=== PATIENT | male | born 1955 | race African-American/Black ===

== ENCOUNTER 2017-05-29 03:53 | Inpatient (IN) | payer MEDICAID ==
[~2017-05-29] VITALS: Ht 177.8 cm; Wt 84.4 kg
[~2017-05-29 03:53] MED LIST: AMLO5TAB88 PO; CHLO10TA9 PO; FLUC100T42 PO; OMEP20CA10 PO; TRAM50TA3 PO
[2017-05-29] MEDS ORDERED: SODIUM CHLORIDE 0.9% 1,000 ML IV ONE ×2 (04:30→06:20)
[2017-05-29] MEDS ORDERED: ONDANSETRON HCL 4MG/2ML VIAL IV STA ×2 (04:30→06:20)
[2017-05-29] MEDS ORDERED: KETOROLAC 30MG/ML VIAL IV STA (04:30)
[2017-05-29 05:33] LABS: HEMOGLOBIN. 8.9 g/dL (14.0-18.0); MEAN CORPUSCULAR HEMOGLOBIN 26.7 pg (28.0-32.0); MEAN CORPUSCULAR VOLUME 81.3 fL (80.0-94.0); MEAN PLATELET VOLUME 7.5 fl (7.4-10.4); PLATELET 338 x1000/uL (130-400); RED BLOOD CELL COUNT 3.31 mill/uL (4.7-6.1); RED CELL DISTRIBUTION WIDTH 20.6 % (11.6-14.6)
[2017-05-29 05:37] LABS: CARBON DIOXIDE 20 mEq/L (21-32); CHLORIDE 95 mEq/L (98-107); ETHANOL BLOOD < 10 mg/dL; INR 1.3
[2017-05-29] MEDS ORDERED: MORPHINE SULFATE 4 MG/ML CPJ (NOT FOR IM USE) IV STA (06:20)
[2017-05-29 07:13] LABS: PLATELET ESTIMATE NORMAL
[2017-05-29 09:01] LABS: CLARITY URINE CLEAR (CLEAR); COLOR URINE DARK YELLOW (YELLOW); GLUCOSE URINE NEGATIVE (NEGATIVE); KETONES URINE TRACE (NEGATIVE); LEUKOCYTE ESTERASE URINE NEGATIVE (NEGATIVE); NITRITE URINE NEGATIVE (NEGATIVE); OCCULT BLOOD URINE NEGATIVE (NEGATIVE); PH URINE 5.5 (4.5-8.0); PROTEIN URINE TRACE (NEGATIVE)
[2017-05-29 09:05] VITALS: BP 122/80
[2017-05-29 09:19] LABS: *AMPHETAMINES SCREEN URINE NEGATIVE (NEGATIVE); *BARBITURATES SCREEN URINE NEGATIVE (NEGATIVE); *BENZODIAZEPINES SCREEN URINE NEGATIVE (NEGATIVE); *COCAINE SCREEN URINE NEGATIVE (NEGATIVE); CANNABINOID URINE SCREEN PRESUMTIVE POSITIVE (NEGATIVE); METHADONE URINE SCREEN NEGATIVE (NEGATIVE); OPIATES URINE SCREEN PRESUMTIVE POSITIVE (NEGATIVE); PHENCYCLIDINE URINE SCREEN NEGATIVE (NEGATIVE)
[2017-05-29] MEDS ORDERED: DIPHENHYDRAMINE 50MG/ML VIAL IV PRN (09:30)
[2017-05-29] MEDS ORDERED: ACETAMINOPHEN 325MG TABLET PO PRN (09:30)
[2017-05-29] MEDS ORDERED: CLONIDINE 0.1MG TABLET PO PRN (09:30)
[2017-05-29] MEDS ORDERED: IPRATROPIUM/ALBUTEROL 0.5-3(2.5)MG/3ML NEB INH PRN (09:30)
[2017-05-29] MEDS ORDERED: LORAZEPAM 2MG/ML CPJ IV PRN (09:30)
[2017-05-29] MEDS ORDERED: DOCUSATE SODIUM 100MG CAPSULE PO PRN (09:30)
[2017-05-29] MEDS ORDERED: MAGNESIUM/ALUMINUM HYDROXIDE/SIMETHICONE 30ML UDC PO PRN (09:30)
[2017-05-29] MEDS ORDERED: HYDROCODONE/APAP 7.5/325MG 1 TAB TABLET PO PRN (09:30)
[2017-05-29] MEDS ORDERED: GUAIFENESIN 200MG/10ML SUGAR FREE UDC PO PRN (09:30)
[2017-05-29] MEDS: OMEPRAZOLE 20MG CAPSULE EXTENDED RELEASE PO SCH (09:53)
[2017-05-29] MEDS: SODIUM CHLORIDE 0.45% 1,000 ML IV SCH ×2 (09:53→23:31)
[2017-05-29] MEDS: ENOXAPARIN 40MG/0.4ML SYR SUBCUT SCH (09:54)
[2017-05-29] MEDS: HYDROMORPHONE HCL/PF 2MG/ML CPJ IV PRN ×4 (09:55→23:56)
[2017-05-29 12:16] VITALS: BP 117/75
[2017-05-29 16:00] VITALS: BP 110/79
[2017-05-29] MEDS: NA PHOS,M-B/NA PHOS,DI-BA ENEMA 118ML PR PRN (18:06)
[2017-05-29 20:00] VITALS: BP 123/82
[2017-05-29] MEDS: LEVOFLOXACIN 500MG PREMIX 100 ML IV SCH (20:37)
[2017-05-29] MEDS: AMLODIPINE 5MG TABLET PO SCH (20:37)
[2017-05-29] MEDS: ONDANSETRON HCL 4MG/2ML VIAL IV PRN (21:37)
[2017-05-29 23:54] VITALS: BP 122/81
[2017-05-30 04:30] VITALS: BP 120/78
[2017-05-30 06:20] LABS: HEMATOCRIT. 28.8 % (42.0-52.0); HEMOGLOBIN. 9.3 g/dL (14.0-18.0); MEAN CORPUSCULAR HEMOGLOBIN 26.5 pg (28.0-32.0); MEAN CORPUSCULAR VOLUME 82.4 fL (80.0-94.0); PLATELET 405 x1000/uL (130-400); RED CELL DISTRIBUTION WIDTH 19.8 % (11.6-14.6)
[2017-05-30] MEDS: HYDROMORPHONE HCL/PF 2MG/ML CPJ IV PRN ×5 (06:27→22:09)
[2017-05-30] MEDS: ONDANSETRON HCL 4MG/2ML VIAL IV PRN (06:27)
[2017-05-30] MEDS: OMEPRAZOLE 20MG CAPSULE EXTENDED RELEASE PO SCH (06:27)
[2017-05-30 07:41] LABS: CARBON DIOXIDE 19 mEq/L (21-32); CHLORIDE 96 mEq/L (98-107)
[2017-05-30 07:47] LABS: HDL CHOLESTEROL 12 mg/dL (40-59); LDL CHOLESTEROL 63 mg/dL (5-100)
[2017-05-30 08:00] VITALS: BP 122/82
[2017-05-30] MEDS: METRONIDAZOLE 500 MG PREMIX 100 ML IV SCH ×3 (08:26→21:58)
[2017-05-30] MEDS: AMLODIPINE 5MG TABLET PO SCH ×2 (08:27→20:48)
[2017-05-30] MEDS: ENOXAPARIN 40MG/0.4ML SYR SUBCUT SCH (08:28)
[2017-05-30 10:09] LABS: PLATELET ESTIMATE SLIGHTLY INCREASED
[2017-05-30 12:00] VITALS: BP_SYST 106; BP_SYST 116; BP_DIAS 66; BP_DIAS 75
[2017-05-30] MEDS: SODIUM CHLORIDE 0.45% 1,000 ML IV SCH (12:52)
[2017-05-30 16:00] VITALS: BP 113/80
[2017-05-30 20:00] VITALS: BP 120/76
[2017-05-30] MEDS: LEVOFLOXACIN 500MG PREMIX 100 ML IV SCH (20:48)
[2017-05-30 23:54] VITALS: BP 123/68
[2017-05-31 04:48] VITALS: BP 120/76
[2017-05-31] MEDS: SODIUM CHLORIDE 0.45% 1,000 ML IV SCH ×2 (04:50→13:37)
[2017-05-31] MEDS: HYDROMORPHONE HCL/PF 2MG/ML CPJ IV PRN ×5 (04:50→21:20)
[2017-05-31] MEDS: METRONIDAZOLE 500 MG PREMIX 100 ML IV SCH ×3 (06:41→22:37)
[2017-05-31] MEDS: OMEPRAZOLE 20MG CAPSULE EXTENDED RELEASE PO SCH (06:42)
[2017-05-31 07:07] LABS: HEMATOCRIT. 26.8 % (42.0-52.0); HEMOGLOBIN. 8.7 g/dL (14.0-18.0); MEAN CORPUSCULAR HEMOGLOBIN 26.6 pg (28.0-32.0); MEAN CORPUSCULAR VOLUME 81.9 fL (80.0-94.0); MEAN PLATELET VOLUME 7.7 fl (7.4-10.4); PLATELET 466 x1000/uL (130-400); RED BLOOD CELL COUNT 3.27 mill/uL (4.7-6.1); RED CELL DISTRIBUTION WIDTH 19.8 % (11.6-14.6)
[2017-05-31 08:00] VITALS: BP_SYST 104; BP_SYST 106; BP_DIAS 74; BP_DIAS 76
[2017-05-31 08:32] LABS: CARBON DIOXIDE 18 mEq/L (21-32); CHLORIDE 96 mEq/L (98-107)
[2017-05-31] MEDS: AMLODIPINE 5MG TABLET PO SCH ×2 (09:00→21:17)
[2017-05-31] MEDS: ENOXAPARIN 40MG/0.4ML SYR SUBCUT SCH (09:31)
[2017-05-31] MEDS: ONDANSETRON HCL 4MG/2ML VIAL IV PRN (09:31)
[2017-05-31 12:00] VITALS: BP 102/74
[2017-05-31 14:05] LABS: PLATELET ESTIMATE INCREASED
[2017-05-31 16:00] VITALS: BP 116/77
[2017-05-31 20:00] VITALS: BP 124/79
[2017-05-31] MEDS: LEVOFLOXACIN 500MG PREMIX 100 ML IV SCH (21:17)
[2017-06-01] VITALS: BP 118/76
[2017-06-01] MEDS: HYDROMORPHONE HCL/PF 2MG/ML CPJ IV PRN ×7 (01:29→22:22)
[2017-06-01 04:00] VITALS: BP 112/74
[2017-06-01] MEDS: SODIUM CHLORIDE 0.45% 1,000 ML IV SCH ×2 (04:39→20:39)
[2017-06-01] MEDS: METRONIDAZOLE 500 MG PREMIX 100 ML IV SCH ×3 (05:05→22:18)
[2017-06-01 07:14] LABS: HEMATOCRIT. 27.4 % (42.0-52.0); HEMOGLOBIN. 8.9 g/dL (14.0-18.0); MEAN CORPUSCULAR HEMOGLOBIN 26.3 pg (28.0-32.0); MEAN CORPUSCULAR VOLUME 80.7 fL (80.0-94.0); MEAN PLATELET VOLUME 7.4 fl (7.4-10.4); PLATELET 527 x1000/uL (130-400); RED BLOOD CELL COUNT 3.39 mill/uL (4.7-6.1); RED CELL DISTRIBUTION WIDTH 19.9 % (11.6-14.6)
[2017-06-01 07:49] LABS: CARBON DIOXIDE 17 mEq/L (21-32); CHLORIDE 97 mEq/L (98-107)
[2017-06-01 08:00] VITALS: BP 110/78
[2017-06-01] MEDS: AMLODIPINE 5MG TABLET PO SCH ×2 (08:51→20:40)
[2017-06-01] MEDS: FAMOTIDINE 20MG TABLET PO SCH ×2 (08:54→20:39)
[2017-06-01] MEDS: ENOXAPARIN 40MG/0.4ML SYR SUBCUT SCH (08:56)
[2017-06-01] MEDS ORDERED: LEVOFLOXACIN 500MG PREMIX 100 ML IV SCH (09:00)
[2017-06-01] MEDS: NA PHOS,M-B/NA PHOS,DI-BA ENEMA 118ML PR PRN (09:10)
[2017-06-01 10:55] LABS: PLATELET ESTIMATE INCREASED
[2017-06-01 12:00] VITALS: BP 90/50
[2017-06-01 16:00] VITALS: BP 113/76
[2017-06-01 20:00] VITALS: BP 107/76
[2017-06-01] MEDS: LEVOFLOXACIN 500MG PREMIX 100 ML IV SCH (20:38)
[2017-06-02] VITALS: BP 118/75
[2017-06-02] MEDS: HYDROMORPHONE HCL/PF 2MG/ML CPJ IV PRN ×7 (01:37→19:48)
[2017-06-02 04:00] VITALS: BP 120/88
[2017-06-02] MEDS: METRONIDAZOLE 500 MG PREMIX 100 ML IV SCH ×3 (05:00→21:29)
[2017-06-02 07:15] LABS: HEMATOCRIT. 29.1 % (42.0-52.0); HEMOGLOBIN. 9.3 g/dL (14.0-18.0); MEAN CORPUSCULAR HEMOGLOBIN 26.1 pg (28.0-32.0); MEAN CORPUSCULAR VOLUME 82.2 fL (80.0-94.0); MEAN PLATELET VOLUME 7.2 fl (7.4-10.4); PLATELET 536 x1000/uL (130-400); RED BLOOD CELL COUNT 3.54 mill/uL (4.7-6.1); RED CELL DISTRIBUTION WIDTH 20.8 % (11.6-14.6)
[2017-06-02 07:44] VITALS: BP 117/79
[2017-06-02 08:12] LABS: CARBON DIOXIDE 18 mEq/L (21-32); CHLORIDE 98 mEq/L (98-107)
[2017-06-02 08:18] LABS: PLATELET ESTIMATE INCREASED
[2017-06-02] MEDS: AMLODIPINE 5MG TABLET PO SCH ×2 (09:00→21:29)
[2017-06-02] MEDS: ENOXAPARIN 40MG/0.4ML SYR SUBCUT SCH (09:04)
[2017-06-02] MEDS: FAMOTIDINE 20MG TABLET PO SCH ×2 (09:04→21:28)
[2017-06-02 12:07] VITALS: BP 114/79
[2017-06-02] MEDS: LACTULOSE 20G/30ML UDC PO PRN (12:45)
[2017-06-02] MEDS: SODIUM CHLORIDE 0.45% 1,000 ML IV SCH (12:46)
[2017-06-02] MEDS: ONDANSETRON HCL 4MG/2ML VIAL IV PRN (15:02)
[2017-06-02 15:49] VITALS: BP 127/76
[2017-06-02] MEDS: LEVOFLOXACIN 500MG PREMIX 100 ML IV SCH (19:46)
[2017-06-02 20:00] VITALS: BP 120/74
[2017-06-02] MEDS: METOPROLOL TARTRATE 25MG TABLET PO SCH (21:29)
[2017-06-03] VITALS: BP 124/77
[2017-06-03] MEDS: HYDROMORPHONE HCL/PF 2MG/ML CPJ IV PRN ×6 (00:57→23:05)
[2017-06-03 04:00] VITALS: BP 115/74
[2017-06-03] MEDS: METRONIDAZOLE 500 MG PREMIX 100 ML IV SCH ×3 (06:17→22:30)
[2017-06-03 07:19] LABS: CARBON DIOXIDE 15 mEq/L (21-32); CHLORIDE 99 mEq/L (98-107)
[2017-06-03 08:00] VITALS: BP 123/78
[2017-06-03] MEDS ORDERED: SODIUM POLYSTYRENE SULFONATE 15 G/60 ML BOT PO NR (08:00)
[2017-06-03] MEDS ORDERED: VANCOMYCIN 1 G PREMIX 200 ML IV NR (09:00)
[2017-06-03] MEDS ORDERED: LACTOBACILLUS GG CAPSULE PO SCH (09:00)
[2017-06-03] MEDS: ENOXAPARIN 40MG/0.4ML SYR SUBCUT SCH (09:02)
[2017-06-03] MEDS: FAMOTIDINE 20MG TABLET PO SCH ×2 (09:03→21:00)
[2017-06-03] MEDS: AMLODIPINE 5MG TABLET PO SCH ×2 (09:03→21:00)
[2017-06-03] MEDS: METOPROLOL TARTRATE 25MG TABLET PO SCH ×2 (09:03→21:00)
[2017-06-03 09:08] LABS: HEMATOCRIT. 29.8 % (42.0-52.0); HEMOGLOBIN. 9.7 g/dL (14.0-18.0); MEAN CORPUSCULAR HEMOGLOBIN 26.5 pg (28.0-32.0); MEAN CORPUSCULAR VOLUME 81.3 fL (80.0-94.0); PLATELET 546 x1000/uL (130-400); RED BLOOD CELL COUNT 3.66 mill/uL (4.7-6.1); RED CELL DISTRIBUTION WIDTH 20.4 % (11.6-14.6)
[2017-06-03 12:00] VITALS: BP 120/78
[2017-06-03] MEDS: SODIUM CHLORIDE 0.45% 1,000 ML IV SCH (12:04)
[2017-06-03 13:50] LABS: PLATELET ESTIMATE INCREASED
[2017-06-03 16:34] VITALS: BP 118/77
[2017-06-03] MEDS: LACTULOSE 20G/30ML UDC PO PRN (18:19)
[2017-06-03 20:00] VITALS: BP 119/74
[2017-06-03] MEDS: LEVOFLOXACIN 500MG PREMIX 100 ML IV SCH (20:04)
[2017-06-03] MEDS: ONDANSETRON HCL 4MG/2ML VIAL IV PRN (21:16)
[2017-06-04] VITALS (13 sets, daily range): BP systolic 105–138; BP diastolic 74–90
[2017-06-04] MEDS: HYDROMORPHONE HCL/PF 2MG/ML CPJ IV PRN ×4 (03:43→20:13)
[2017-06-04] MEDS: ONDANSETRON HCL 4MG/2ML VIAL IV PRN (03:54)
[2017-06-04] MEDS: METRONIDAZOLE 500 MG PREMIX 100 ML IV SCH ×3 (05:36→22:19)
[2017-06-04] MEDS: SODIUM CHLORIDE 0.45% 1,000 ML IV SCH (08:27)
[2017-06-04] MEDS: FAMOTIDINE 20MG TABLET PO SCH ×2 (08:28→20:13)
[2017-06-04] MEDS: ENOXAPARIN 40MG/0.4ML SYR SUBCUT SCH (08:28)
[2017-06-04] MEDS: AMLODIPINE 5MG TABLET PO SCH ×2 (08:28→20:13)
[2017-06-04] MEDS: METOPROLOL TARTRATE 25MG TABLET PO SCH ×2 (08:28→20:13)
[2017-06-04] MEDS ORDERED: SODIUM CHLORIDE 0.9% 10ML VIAL ONE (08:55)
[2017-06-04] MEDS ORDERED: IOHEXOL-300 100 ML BOTTLE ONE (08:55)
[2017-06-04 09:15] LABS: HEMATOCRIT. 29.6 % (42.0-52.0); HEMOGLOBIN. 9.4 g/dL (14.0-18.0); MEAN CORPUSCULAR HEMOGLOBIN 25.7 pg (28.0-32.0); MEAN CORPUSCULAR VOLUME 80.7 fL (80.0-94.0); MEAN PLATELET VOLUME 7.1 fl (7.4-10.4); PLATELET 504 x1000/uL (130-400); RED BLOOD CELL COUNT 3.67 mill/uL (4.7-6.1); RED CELL DISTRIBUTION WIDTH 20.5 % (11.6-14.6)
[2017-06-04] MEDS ORDERED: DIATR MEGLU/DIATRIZOATE SOLN 30ML PO NR (09:30)
[2017-06-04 09:46] LABS: CARBON DIOXIDE 18 mEq/L (21-32); CHLORIDE 97 mEq/L (98-107)
[2017-06-04] MEDS: SODIUM CHLORIDE 0.9% 1,000 ML IV SCH (09:47)
[2017-06-04] MEDS ORDERED: SODIUM BICARBONATE 4.2% 5 MEQ/10 ML DISP.SYRIN IV ONE (11:09)
[2017-06-04] MEDS ORDERED: LIDOCAINE HCL 1% 20ML VIAL (Pyxis) INJ ONE (11:09)
[2017-06-04] MEDS ORDERED: DIPHENHYDRAMINE 50MG/ML VIAL ONE (11:51)
[2017-06-04] MEDS ORDERED: FENTANYL CITRATE/PF 50MCG/ML 2ML VIAL ONE (11:51)
[2017-06-04 12:12] LABS: PLATELET ESTIMATE INCREASED
[2017-06-04] MEDS ORDERED: FENTANYL CITRATE/PF 50MCG/ML 2ML VIAL IV SCH (12:30)
[2017-06-04] MEDS ORDERED: DIPHENHYDRAMINE 50MG/ML VIAL IV SCH (12:30)
[2017-06-04] MEDS: LEVOFLOXACIN 500MG PREMIX 100 ML IV SCH (20:12)
[2017-06-05] MEDS: HYDROMORPHONE HCL/PF 2MG/ML CPJ IV PRN ×6 (00:02→21:02)
[2017-06-05 04:00] VITALS: BP 117/70
[2017-06-05] MEDS: ONDANSETRON HCL 4MG/2ML VIAL IV PRN ×3 (04:13→22:41)
[2017-06-05] MEDS: METRONIDAZOLE 500 MG PREMIX 100 ML IV SCH ×3 (05:48→22:30)
[2017-06-05] MEDS: SODIUM CHLORIDE 0.9% 1,000 ML IV SCH (05:49)
[2017-06-05 06:10] LABS: HEMATOCRIT. 27.8 % (42.0-52.0); HEMOGLOBIN. 9.1 g/dL (14.0-18.0); MEAN CORPUSCULAR HEMOGLOBIN 26.5 pg (28.0-32.0); MEAN PLATELET VOLUME 6.6 fl (7.4-10.4); PLATELET 475 x1000/uL (130-400); RED BLOOD CELL COUNT 3.43 mill/uL (4.7-6.1); RED CELL DISTRIBUTION WIDTH 20.5 % (11.6-14.6)
[2017-06-05 06:47] LABS: CARBON DIOXIDE 20 mEq/L (21-32); CHLORIDE 100 mEq/L (98-107)
[2017-06-05 08:00] VITALS: BP 128/80
[2017-06-05] MEDS: METOPROLOL TARTRATE 25MG TABLET PO SCH ×2 (08:49→21:01)
[2017-06-05] MEDS: ENOXAPARIN 40MG/0.4ML SYR SUBCUT SCH (08:49)
[2017-06-05] MEDS: LACTULOSE 20G/30ML UDC PO PRN (08:49)
[2017-06-05] MEDS: FAMOTIDINE 20MG TABLET PO SCH ×2 (08:49→21:00)
[2017-06-05] MEDS: AMLODIPINE 5MG TABLET PO SCH ×2 (08:50→21:00)
[2017-06-05 09:55] LABS: PLATELET ESTIMATE INCREASED
[2017-06-05 12:00] VITALS: BP 118/74
[2017-06-05 16:00] VITALS: BP 119/74
[2017-06-05 20:00] VITALS: BP 128/72
[2017-06-05] MEDS: LEVOFLOXACIN 500MG PREMIX 100 ML IV SCH (20:55)
[2017-06-06] VITALS: BP 115/82
[2017-06-06] MEDS: HYDROMORPHONE HCL/PF 2MG/ML CPJ IV PRN ×6 (01:02→22:37)
[2017-06-06] MEDS: SODIUM CHLORIDE 0.9% 1,000 ML IV SCH (01:30)
[2017-06-06 04:30] VITALS: BP 134/84
[2017-06-06] MEDS: METRONIDAZOLE 500 MG PREMIX 100 ML IV SCH ×3 (05:28→22:37)
[2017-06-06] MEDS: ONDANSETRON HCL 4MG/2ML VIAL IV PRN ×2 (05:28→11:23)
[2017-06-06 06:45] LABS: HEMATOCRIT. 28.3 % (42.0-52.0); HEMOGLOBIN. 9.3 g/dL (14.0-18.0); MEAN CORPUSCULAR HEMOGLOBIN 26.7 pg (28.0-32.0); MEAN CORPUSCULAR VOLUME 81.1 fL (80.0-94.0); MEAN PLATELET VOLUME 6.8 fl (7.4-10.4); PLATELET 420 x1000/uL (130-400); RED CELL DISTRIBUTION WIDTH 20.6 % (11.6-14.6)
[2017-06-06 07:23] LABS: CHLORIDE 101 mEq/L (98-107)
[2017-06-06 07:48] LABS: CARBON DIOXIDE 16 mEq/L (21-32)
[2017-06-06 08:12] VITALS: BP 127/78
[2017-06-06] MEDS: FAMOTIDINE 20MG TABLET PO SCH ×2 (09:00→20:48)
[2017-06-06] MEDS: METOPROLOL TARTRATE 25MG TABLET PO SCH ×2 (09:00→20:41)
[2017-06-06] MEDS: AMLODIPINE 5MG TABLET PO SCH ×2 (09:00→20:41)
[2017-06-06] MEDS: LACTULOSE 20G/30ML UDC PO SCH ×2 (09:00→17:00)
[2017-06-06 09:47] LABS: PLATELET ESTIMATE SLIGHTLY INCREASED
[2017-06-06] MEDS: ENOXAPARIN 40MG/0.4ML SYR SUBCUT SCH (10:23)
[2017-06-06 11:39] LABS: BG BASE EXCESS -5.8 mmol/L (-2.0-2.0); BG CARBOXYHEMOGLOBIN 0.6 % (0.5-1.5); BG DEOXYHEMOGLOBIN 6.5 % (0.0-5.0); BG HCO3 ACT 17.1 mmol/L (22.0-26.0); BG METHEMOGLOBIN 0.4 % (0.0-1.5); BG OXYGEN SATURATION 93.4 % (92.0-98.5); BG OXYHEMOGLOBIN 92.5 % (94.0-97.0); BG PCO2 26.1 mmHg (35.0-45.0); BG PH 7.433 (7.350-7.450); BG PO2 69.5 mmHg (75.0-100.0); BG SAMPLE SITE RIGHT BRACHIAL; BG TOTAL HEMOGLOBIN 11.7 g/dL (12.0-18.0); BG VENT MODE NASAL CANNULA
[2017-06-06] MEDS: NA PHOS,M-B/NA PHOS,DI-BA ENEMA 118ML PR PRN (11:58)
[2017-06-06 12:00] VITALS: BP 133/86
[2017-06-06 16:00] VITALS: BP 112/79
[2017-06-06 20:00] VITALS: BP 105/75
[2017-06-06] MEDS: LEVOFLOXACIN 500MG PREMIX 100 ML IV SCH (20:47)
[2017-06-07] VITALS (13 sets, daily range): BP systolic 103–113; BP diastolic 64–76
[2017-06-07] MEDS: HYDROMORPHONE HCL/PF 2MG/ML CPJ IV PRN ×5 (03:47→20:46)
[2017-06-07] MEDS: SODIUM CHLORIDE 0.9% 1,000 ML IV SCH (06:21)
[2017-06-07] MEDS: METRONIDAZOLE 500 MG PREMIX 100 ML IV SCH ×3 (06:21→21:42)
[2017-06-07 07:31] LABS: BASOPHILS % 0.3 % (0.0-2.0); EOSINOPHILS % 0.1 % (0.0-5.0); HEMATOCRIT. 29.8 % (42.0-52.0); HEMOGLOBIN. 9.6 g/dL (14.0-18.0); LYMPHOCYTES % 7.3 % (20.0-50.0); MEAN CORPUSCULAR HEMOGLOBIN 26.3 pg (28.0-32.0); MEAN PLATELET VOLUME 7.1 fl (7.4-10.4); MONOCYTES % 3.4 % (2.0-8.0); NEUTROPHILS % 88.9 % (40.0-76.0); PLATELET 366 x1000/uL (130-400); RED BLOOD CELL COUNT 3.64 mill/uL (4.7-6.1); RED CELL DISTRIBUTION WIDTH 20.6 % (11.6-14.6)
[2017-06-07 07:41] LABS: CARBON DIOXIDE 21 mEq/L (21-32); CHLORIDE 101 mEq/L (98-107); PHOSPHORUS 3.1 mg/dL (2.5-4.9)
[2017-06-07] MEDS: AMLODIPINE 5MG TABLET PO SCH ×2 (08:09→20:42)
[2017-06-07] MEDS: METOPROLOL TARTRATE 25MG TABLET PO SCH ×2 (08:09→20:42)
[2017-06-07] MEDS: ENOXAPARIN 40MG/0.4ML SYR SUBCUT SCH (08:14)
[2017-06-07] MEDS: FAMOTIDINE 20MG TABLET PO SCH ×2 (08:15→20:37)
[2017-06-07] MEDS ORDERED: FENTANYL CITRATE/PF 50MCG/ML 2ML VIAL ONE (13:08)
[2017-06-07] MEDS ORDERED: FENTANYL CITRATE/PF 50MCG/ML 2ML VIAL IV ONE (13:30)
[2017-06-07] MEDS ORDERED: SIMETHICONE 80MG TABLET CHEW PO PRN (19:15)
[2017-06-07] MEDS: LEVOFLOXACIN 500MG PREMIX 100 ML IV SCH (20:37)
[2017-06-07] MEDS: ONDANSETRON HCL 4MG/2ML VIAL IV PRN (20:37)
[2017-06-08] VITALS: BP 111/70
[2017-06-08] MEDS: HYDROMORPHONE HCL/PF 2MG/ML CPJ IV PRN ×7 (00:56→22:01)
[2017-06-08] MEDS: METOCLOPRAMIDE HCL 10MG/2ML VIAL IV PRN (01:03)
[2017-06-08 04:00] VITALS: BP 104/68
[2017-06-08] MEDS: ONDANSETRON HCL 4MG/2ML VIAL IV PRN (05:00)
[2017-06-08] MEDS: SODIUM CHLORIDE 0.9% 1,000 ML IV SCH (05:11)
[2017-06-08 06:39] LABS: HEMATOCRIT. 27.7 % (42.0-52.0); MEAN CORPUSCULAR HEMOGLOBIN 26.7 pg (28.0-32.0); MEAN PLATELET VOLUME 7.1 fl (7.4-10.4); PLATELET 269 x1000/uL (130-400); RED BLOOD CELL COUNT 3.37 mill/uL (4.7-6.1); RED CELL DISTRIBUTION WIDTH 20.8 % (11.6-14.6)
[2017-06-08 07:53] VITALS: BP 109/73
[2017-06-08] MEDS: METOPROLOL TARTRATE 25MG TABLET PO SCH ×2 (09:00→22:00)
[2017-06-08] MEDS: AMLODIPINE 5MG TABLET PO SCH ×2 (09:00→22:07)
[2017-06-08 09:13] LABS: CARBON DIOXIDE 20 mEq/L (21-32); CHLORIDE 107 mEq/L (98-107)
[2017-06-08] MEDS: ENOXAPARIN 40MG/0.4ML SYR SUBCUT SCH (11:09)
[2017-06-08] MEDS: FAMOTIDINE 20MG TABLET PO SCH ×2 (11:09→21:59)
[2017-06-08 12:12] VITALS: BP 123/82
[2017-06-08] MEDS ORDERED: SODIUM CHLORIDE 0.9% 10ML VIAL ONE (14:07)
[2017-06-08] MEDS ORDERED: IOHEXOL-300 100 ML BOTTLE ONE (14:07)
[2017-06-08 16:00] VITALS: BP 111/59
[2017-06-08 20:00] VITALS: BP 119/76
[2017-06-08 20:18] LABS: PLATELET ESTIMATE NORMAL
[2017-06-09] VITALS: BP 108/76
[2017-06-09] MEDS: HYDROMORPHONE HCL/PF 2MG/ML CPJ IV PRN ×7 (01:39→20:15)
[2017-06-09 04:00] VITALS: BP 123/81
[2017-06-09 07:56] VITALS: BP 128/80
[2017-06-09] MEDS: ENOXAPARIN 40MG/0.4ML SYR SUBCUT SCH (08:13)
[2017-06-09] MEDS: FAMOTIDINE 20MG TABLET PO SCH ×2 (08:13→20:16)
[2017-06-09] MEDS: METOPROLOL TARTRATE 25MG TABLET PO SCH ×2 (09:00→20:17)
[2017-06-09] MEDS: AMLODIPINE 5MG TABLET PO SCH ×2 (09:00→20:17)
[2017-06-09 09:51] LABS: HEMATOCRIT. 29.7 % (42.0-52.0); HEMOGLOBIN. 9.5 g/dL (14.0-18.0); MEAN CORPUSCULAR HEMOGLOBIN 26.6 pg (28.0-32.0); MEAN CORPUSCULAR VOLUME 83.5 fL (80.0-94.0); MEAN PLATELET VOLUME 7.3 fl (7.4-10.4); PLATELET 233 x1000/uL (130-400); RED BLOOD CELL COUNT 3.56 mill/uL (4.7-6.1); RED CELL DISTRIBUTION WIDTH 21.2 % (11.6-14.6)
[2017-06-09 10:14] LABS: CARBON DIOXIDE 21 mEq/L (21-32); CHLORIDE 110 mEq/L (98-107)
[2017-06-09 12:00] VITALS: BP 124/76
[2017-06-09 14:29] LABS: NUCLEATED RED BLOOD CELLS 1 /100 WBC
[2017-06-09 14:30] LABS: PLATELET ESTIMATE NORMAL
[2017-06-09 16:00] VITALS: BP 119/77
[2017-06-09 20:00] VITALS: BP 113/73
[2017-06-10] VITALS: BP 114/75
[2017-06-10] MEDS: HYDROMORPHONE HCL/PF 2MG/ML CPJ IV PRN ×6 (00:03→21:18)
[2017-06-10 04:00] VITALS: BP 122/77
[2017-06-10] MEDS: SODIUM CHLORIDE 0.9% 1,000 ML IV SCH ×2 (04:15→23:32)
[2017-06-10 06:28] LABS: BASOPHILS % 0.1 % (0.0-2.0); EOSINOPHILS % 0.2 % (0.0-5.0); HEMATOCRIT. 29.3 % (42.0-52.0); HEMOGLOBIN. 9.4 g/dL (14.0-18.0); MEAN CORPUSCULAR HEMOGLOBIN 26.5 pg (28.0-32.0); MEAN CORPUSCULAR VOLUME 82.6 fL (80.0-94.0); MEAN PLATELET VOLUME 7.1 fl (7.4-10.4); MONOCYTES % 6.5 % (2.0-8.0); NEUTROPHILS % 85.2 % (40.0-76.0); PLATELET 210 x1000/uL (130-400); RED BLOOD CELL COUNT 3.55 mill/uL (4.7-6.1); RED CELL DISTRIBUTION WIDTH 21.7 % (11.6-14.6)
[2017-06-10 06:52] LABS: CARBON DIOXIDE 25 mEq/L (21-32); CHLORIDE 109 mEq/L (98-107)
[2017-06-10 08:00] VITALS: BP 136/84
[2017-06-10] MEDS: LACTULOSE 20G/30ML UDC PO SCH ×2 (09:00→17:00)
[2017-06-10] MEDS: METOPROLOL TARTRATE 25MG TABLET PO SCH ×2 (09:27→21:00)
[2017-06-10] MEDS: FAMOTIDINE 20MG TABLET PO SCH ×2 (09:27→21:00)
[2017-06-10] MEDS: AMLODIPINE 5MG TABLET PO SCH ×2 (09:27→21:00)
[2017-06-10] MEDS: ENOXAPARIN 40MG/0.4ML SYR SUBCUT SCH (09:27)
[2017-06-10] MEDS: METOCLOPRAMIDE HCL 10MG/2ML VIAL IV PRN ×2 (09:33→17:12)
[2017-06-10 12:00] VITALS: BP 122/80
[2017-06-10 16:00] VITALS: BP 120/80
[2017-06-10 20:00] VITALS: BP 114/76
[2017-06-10] MEDS: ONDANSETRON HCL 4MG/2ML VIAL IV PRN (21:15)
[2017-06-11] VITALS: BP 123/76
[2017-06-11] MEDS: HYDROMORPHONE HCL/PF 2MG/ML CPJ IV PRN ×5 (01:35→23:50)
[2017-06-11 04:00] VITALS: BP 107/78
[2017-06-11] MEDS: METOCLOPRAMIDE HCL 10MG/2ML VIAL IV PRN ×2 (05:42→23:49)
[2017-06-11 06:34] LABS: BASOPHILS % 0.3 % (0.0-2.0); EOSINOPHILS % 0.2 % (0.0-5.0); HEMATOCRIT. 32.7 % (42.0-52.0); HEMOGLOBIN. 10.4 g/dL (14.0-18.0); LYMPHOCYTES % 10.7 % (20.0-50.0); MEAN CORPUSCULAR HEMOGLOBIN 26.6 pg (28.0-32.0); MEAN CORPUSCULAR VOLUME 83.7 fL (80.0-94.0); MEAN PLATELET VOLUME 7.5 fl (7.4-10.4); MONOCYTES % 6.4 % (2.0-8.0); NEUTROPHILS % 82.4 % (40.0-76.0); PLATELET 201 x1000/uL (130-400); RED BLOOD CELL COUNT 3.91 mill/uL (4.7-6.1); RED CELL DISTRIBUTION WIDTH 21.4 % (11.6-14.6)
[2017-06-11 08:05] VITALS: BP 123/77
[2017-06-11 08:16] LABS: CARBON DIOXIDE 22 mEq/L (21-32); CHLORIDE 109 mEq/L (98-107)
[2017-06-11] MEDS: ENOXAPARIN 40MG/0.4ML SYR SUBCUT SCH (10:03)
[2017-06-11] MEDS: AMLODIPINE 5MG TABLET PO SCH ×2 (10:03→21:51)
[2017-06-11] MEDS: METOPROLOL TARTRATE 25MG TABLET PO SCH ×2 (10:03→21:35)
[2017-06-11] MEDS: FAMOTIDINE 20MG TABLET PO SCH ×2 (10:03→21:35)
[2017-06-11] MEDS: ONDANSETRON HCL 4MG/2ML VIAL IV PRN ×2 (10:04→17:08)
[2017-06-11 21:47] VITALS: BP 126/83
[2017-06-11] MEDS: SODIUM CHLORIDE 0.9% 1,000 ML IV SCH (23:50)
[2017-06-12] VITALS: BP 125/83
[2017-06-12 04:00] VITALS: BP 129/75
[2017-06-12] MEDS: HYDROMORPHONE HCL/PF 2MG/ML CPJ IV PRN (04:24)
[2017-06-12 06:56] LABS: BASOPHILS % 0.1 % (0.0-2.0); EOSINOPHILS % 0.2 % (0.0-5.0); HEMATOCRIT. 27.2 % (42.0-52.0); HEMOGLOBIN. 8.8 g/dL (14.0-18.0); LYMPHOCYTES % 9.2 % (20.0-50.0); MEAN CORPUSCULAR HEMOGLOBIN 26.7 pg (28.0-32.0); MEAN PLATELET VOLUME 7.9 fl (7.4-10.4); MONOCYTES % 7.4 % (2.0-8.0); NEUTROPHILS % 83.1 % (40.0-76.0); PLATELET 169 x1000/uL (130-400); RED BLOOD CELL COUNT 3.28 mill/uL (4.7-6.1); RED CELL DISTRIBUTION WIDTH 21.2 % (11.6-14.6)
[2017-06-12 08:00] VITALS: BP 126/80
[2017-06-12 08:26] LABS: CHLORIDE 109 mEq/L (98-107)
[2017-06-12] MEDS ORDERED: IBUPROFEN 100 MG/5 ML UD CUP PO ONE (08:30)
[2017-06-12 08:43] LABS: CARBON DIOXIDE 21 mEq/L (21-32)
[2017-06-12] MEDS: METOPROLOL TARTRATE 25MG TABLET PO SCH (08:58)
[2017-06-12] MEDS: FAMOTIDINE 20MG TABLET PO SCH (08:58)
[2017-06-12] MEDS: ENOXAPARIN 40MG/0.4ML SYR SUBCUT SCH (08:58)
[2017-06-12] MEDS: IBUPROFEN 600MG TABLET PO PRN ×2 (08:59→16:04)
[2017-06-12] MEDS: AMLODIPINE 5MG TABLET PO SCH (08:59)
[2017-06-12 12:00] VITALS: BP 115/69
[2017-06-12 15:12] VITALS: BP 115/69
[2017-06-12 16:04] VITALS: BP 115/69
== END 2017-06-12 16:15 | disposition home or self-care (01) | DRG 720 ==
LOC: ER 04:03 → 8WST 06:50 → ENRESERV 08:07
PROVIDERS: ADMIT Internal Medicine; ATTEND Internal Medicine
PROC: 0W9F30Z Drainage of Abdominal Wall with Drainage Device, Percutaneous Approach (ICD-10-PCS; 2017-06-04)
PROC: 0F9130Z Drainage of Right Lobe Liver with Drainage Device, Percutaneous Approach (ICD-10-PCS; principal; 2017-06-07)
PROC: 0W9G30Z Drainage of Peritoneal Cavity with Drainage Device, Percutaneous Approach (ICD-10-PCS; 2017-06-07)
DX: A41.9 Sepsis, unspecified organism (principal); I81 Portal vein thrombosis; E43 Unspecified severe protein-calorie malnutrition; K65.1 Peritoneal abscess; E87.2 Acidosis; J90 Pleural effusion, not elsewhere classified; R18.8 Other ascites; K75.0 Abscess of liver; N17.9 Acute kidney failure, unspecified; K56.60 Unspecified intestinal obstruction; K74.60 Unspecified cirrhosis of liver; E87.1 Hypo-osmolality and hyponatremia; E86.0 Dehydration; D64.9 Anemia, unspecified; E87.5 Hyperkalemia; I10 Essential (primary) hypertension; K21.9 Gastro-esophageal reflux disease without esophagitis; R16.0 Hepatomegaly, not elsewhere classified; K52.9 Noninfective gastroenteritis and colitis, unspecified; K56.7 Ileus, unspecified; Z79.899 Other long term (current) drug therapy; Z68.26 Body mass index [BMI] 26.0-26.9, adult
CPT/HCPCS: 36415; 36600; 71010; 74000; 74176; 74177; 76700; 76942; 77012; 80048; 80053; 80061; 80305; 81001; 82375; 82533; 82805; 83690; 83735; 83930; 84100; 84443; 85025; 85610; 87015; 87040; 87045; 87070; 87075; 87086; 87205; 87427; 87449; 93306; 93970; 96361; 96374; 96375; 96376; 97110; 97116; 97163; 97530; 99285; A4216; C1729; C1769; C1893; G0482; J1170; J1200; J1650; J1885; J1956; J2270; J2405; J2765; J3010; J3370; J3490; J7030; J7040; J7050; Q9967

== ENCOUNTER 2017-06-12 23:08 | Emergency (ER) | payer MEDICAID ==
[~2017-06-12] VITALS: Ht 182.9 cm; Wt 86.0 kg
[~2017-06-12 23:08] MED LIST changes: -CHLO10TA9 PO; -FLUC100T42 PO; -TRAM50TA3 PO
[2017-06-12] MEDS ORDERED: MORPHINE SULFATE 4 MG/ML CPJ (NOT FOR IM USE) IV STA (23:21)
[2017-06-12] MEDS ORDERED: SODIUM CHLORIDE 0.9% 1,000 ML IV ONE (23:21)
[2017-06-12] MEDS ORDERED: ONDANSETRON HCL 4MG/2ML VIAL IV STA (23:21)
[2017-06-12] MEDS ORDERED: FAMOTIDINE 20MG/2ML VIAL IV STA (23:21)
[2017-06-12 23:48] LABS: BASOPHILS % 0.2 % (0.0-2.0); EOSINOPHILS % 0.2 % (0.0-5.0); HEMATOCRIT. 27.6 % (42.0-52.0); HEMOGLOBIN. 8.9 g/dL (14.0-18.0); MEAN CORPUSCULAR HEMOGLOBIN 26.9 pg (28.0-32.0); MEAN CORPUSCULAR VOLUME 83.1 fL (80.0-94.0); MEAN PLATELET VOLUME 7.7 fl (7.4-10.4); MONOCYTES % 7.2 % (2.0-8.0); NEUTROPHILS % 81.4 % (40.0-76.0); PLATELET 177 x1000/uL (130-400); RED BLOOD CELL COUNT 3.32 mill/uL (4.7-6.1); RED CELL DISTRIBUTION WIDTH 21.3 % (11.6-14.6)
[2017-06-12 23:55] LABS: INR 1.2; PROTHROMBIN TIME 12.5 sec (9.4-11.6)
[2017-06-12 23:59] LABS: AMMONIA 30 uMol/L (<32)
[2017-06-13 00:07] LABS: CARBON DIOXIDE 24 mEq/L (21-32); CHLORIDE 108 mEq/L (98-107)
[2017-06-13 00:08] LABS: ETHANOL BLOOD < 10 mg/dL; TROPONIN I < 0.02 ng/mL (0.00-0.04)
[2017-06-13] MEDS ORDERED: SODIUM CHLORIDE 0.9% 1,000 ML IV ONE (01:45)
[2017-06-13 02:30] VITALS: BP 121/83
== END 2017-06-13 02:49 | disposition home or self-care (01) ==
LOC: ER 23:08
DX: R10.11 Right upper quadrant pain (principal); J90 Pleural effusion, not elsewhere classified; J98.11 Atelectasis; D72.829 Elevated white blood cell count, unspecified; R00.1 Bradycardia, unspecified; K21.9 Gastro-esophageal reflux disease without esophagitis; K76.9 Liver disease, unspecified; Z98.890 Other specified postprocedural states
CPT/HCPCS: 36415; 74176; 80053; 82140; 83605; 83690; 84484; 85025; 85610; 93005; 96361; 96374; 96375; 99285; G0482; J2270; J2405; J3490; J7030; Z7610

== ENCOUNTER 2017-06-26 12:40 | Emergency (ER) | payer MEDICAID ==
[~2017-06-26] VITALS: Ht 180.3 cm; Wt 78.0 kg
[2017-06-26 16:37] VITALS: BP 127/82
== END 2017-06-26 16:40 | disposition home or self-care (01) ==
LOC: ER 13:38
DX: R10.9 Unspecified abdominal pain (principal); I10 Essential (primary) hypertension; Z48.03 Encounter for change or removal of drains
CPT/HCPCS: 99283; Z7610

== ENCOUNTER 2017-07-28 15:15 | Emergency (ER) | payer MEDICAID ==
[~2017-07-28] VITALS: Ht 180.3 cm; Wt 64.0 kg
[2017-07-28 15:21] VITALS: BP 119/77
== END 2017-07-28 21:22 | disposition left against medical advice (07) ==
LOC: ER 15:52
DX: R10.9 Unspecified abdominal pain (principal); Z53.21 Procedure and treatment not carried out due to patient leaving prior to being seen by health care provider

== ENCOUNTER 2017-07-29 14:34 | Inpatient (IN) | payer MEDICAID ==
[~2017-07-29] VITALS: Ht 180.3 cm; Wt 68.0 kg
[~2017-07-29 14:34] MED LIST changes: +IOHEXOL-300 100 ML BOTTLE ONE; +SODIUM CHLORIDE 0.9% 10ML VIAL ONE
[2017-07-29] MEDS ORDERED: SODIUM CHLORIDE 0.9% 1,000 ML IV ONE (16:58)
[2017-07-29] MEDS ORDERED: MORPHINE SULFATE 4 MG/ML CPJ (NOT FOR IM USE) IV ONE (17:15)
[2017-07-29] MEDS ORDERED: ONDANSETRON HCL 4MG/2ML VIAL IV ONE (17:15)
[2017-07-29 17:22] LABS: BASOPHILS % 0.5 % (0.0-2.0); EOSINOPHILS % 0.7 % (0.0-5.0); HEMATOCRIT. 29.1 % (42.0-52.0); HEMOGLOBIN. 9.9 g/dL (14.0-18.0); LYMPHOCYTES % 14.9 % (20.0-50.0); MEAN CORPUSCULAR HEMOGLOBIN 29.1 pg (28.0-32.0); MEAN CORPUSCULAR VOLUME 85.3 fL (80.0-94.0); MEAN PLATELET VOLUME 6.8 fl (7.4-10.4); MONOCYTES % 8.5 % (2.0-8.0); NEUTROPHILS % 75.4 % (40.0-76.0); PLATELET 268 x1000/uL (130-400); RED BLOOD CELL COUNT 3.41 mill/uL (4.7-6.1); RED CELL DISTRIBUTION WIDTH 17.9 % (11.6-14.6)
[2017-07-29 17:29] LABS: INR 1.1; PROTHROMBIN TIME 11.6 sec (9.4-11.6)
[2017-07-29 17:42] LABS: CHLORIDE 104 mEq/L (98-107)
[2017-07-29 17:49] LABS: CARBON DIOXIDE 23 mEq/L (21-32)
[2017-07-29] MEDS ORDERED: AMPICILLIN 2,000 MG in SODIUM CHLORIDE 0.9% 100 ML IV SCH (19:09)
[2017-07-29] MEDS ORDERED: CEFTRIAXONE 2 G PREMIX 50 ML IV NR (19:15)
[2017-07-29] MEDS ORDERED: METRONIDAZOLE 500 MG PREMIX 100 ML IV NR (19:15)
[2017-07-29 20:31] LABS: CLARITY URINE CLEAR (CLEAR); COLOR URINE DARK YELLOW (YELLOW); GLUCOSE URINE NEGATIVE (NEGATIVE); KETONES URINE TRACE (NEGATIVE); LEUKOCYTE ESTERASE URINE NEGATIVE (NEGATIVE); NITRITE URINE NEGATIVE (NEGATIVE); OCCULT BLOOD URINE NEGATIVE (NEGATIVE); PH URINE 5.5 (4.5-8.0); PROTEIN URINE TRACE (NEGATIVE); SPECIFIC GRAVITY URINE 1.025 (1.005-1.030)
[2017-07-29 21:23] VITALS: BP 122/76
[2017-07-29 21:30] VITALS: BP 122/76
[2017-07-29] MEDS ORDERED: DIPHENHYDRAMINE 50MG/ML VIAL IV PRN (22:45)
[2017-07-29] MEDS ORDERED: MAGNESIUM/ALUMINUM HYDROXIDE/SIMETHICONE 30ML UDC PO PRN (22:45)
[2017-07-29] MEDS ORDERED: IBUPROFEN 600MG TABLET PO PRN (22:45)
[2017-07-29] MEDS ORDERED: ACETAMINOPHEN 325MG TABLET PO PRN (22:45)
[2017-07-29] MEDS ORDERED: ONDANSETRON HCL 4MG/2ML VIAL IV PRN (22:45)
[2017-07-29] MEDS: HYDROCODONE/ACETAMINOPHEN 10/325MG TABLET PO PRN (23:03)
[2017-07-29] MEDS ORDERED: POTASSIUM CHLORIDE 20MEQ TABLET SR PO NR (23:15)
[2017-07-30] VITALS: BP 118/63
[2017-07-30] MEDS: LEVOFLOXACIN 500MG PREMIX 100 ML IV SCH (00:49)
[2017-07-30 03:14] LABS: *AMPHETAMINES SCREEN URINE NEGATIVE (NEGATIVE); *BARBITURATES SCREEN URINE NEGATIVE (NEGATIVE); *BENZODIAZEPINES SCREEN URINE NEGATIVE (NEGATIVE); *COCAINE SCREEN URINE NEGATIVE (NEGATIVE); CANNABINOID URINE SCREEN PRESUMTIVE POSITIVE (NEGATIVE); METHADONE URINE SCREEN NEGATIVE (NEGATIVE); OPIATES URINE SCREEN PRESUMTIVE POSITIVE (NEGATIVE); PHENCYCLIDINE URINE SCREEN NEGATIVE (NEGATIVE)
[2017-07-30 04:00] VITALS: BP 121/71
[2017-07-30] MEDS: OMEPRAZOLE 20MG CAPSULE EXTENDED RELEASE PO SCH ×2 (06:06→20:40)
[2017-07-30] MEDS: SODIUM CHLORIDE 0.9% INJ 3ML FLUSH IVF SCH ×3 (06:06→20:41)
[2017-07-30 08:00] VITALS: BP_SYST 123; BP_SYST 138; BP_DIAS 79; BP_DIAS 83
[2017-07-30] MEDS: HYDROCODONE/ACETAMINOPHEN 10/325MG TABLET PO PRN ×3 (08:19→20:39)
[2017-07-30 12:00] VITALS: BP 115/65
[2017-07-30 16:00] VITALS: BP 119/71
[2017-07-30] MEDS: AMPICILLIN SOD/SULBACTAM NA 3 G in SODIUM CHLORIDE 0.9% 100 ML IV SCH (17:20)
[2017-07-30 20:00] VITALS: BP 132/85
[2017-07-30] MEDS ORDERED: POTASSIUM CHLORIDE 20MEQ TABLET SR PO NR (20:00)
[2017-07-31] VITALS: BP 127/80
[2017-07-31] MEDS: AMPICILLIN SOD/SULBACTAM NA 3 G in SODIUM CHLORIDE 0.9% 100 ML IV SCH ×4 (00:07→17:35)
[2017-07-31] MEDS: LEVOFLOXACIN 500MG PREMIX 100 ML IV SCH ×2 (00:59→23:38)
[2017-07-31] MEDS: HYDROCODONE/ACETAMINOPHEN 10/325MG TABLET PO PRN ×4 (02:39→21:12)
[2017-07-31 04:00] VITALS: BP 125/77
[2017-07-31] MEDS: OMEPRAZOLE 20MG CAPSULE EXTENDED RELEASE PO SCH (06:45)
[2017-07-31] MEDS: SODIUM CHLORIDE 0.9% INJ 3ML FLUSH IVF SCH ×3 (06:45→21:12)
[2017-07-31 08:00] VITALS: BP 146/89
[2017-07-31 08:22] LABS: HEMATOCRIT 28.6 % (42.0-52.0); HEMOGLOBIN 9.6 g/dL (14.0-18.0); MEAN CORPUSCULAR HEMOGLOBIN 28.4 pg (28.0-32.0); MEAN CORPUSCULAR VOLUME 84.5 fL (80.0-94.0); PLATELET 215 x1000/uL (130-400); RED BLOOD CELL COUNT 3.38 mill/uL (4.7-6.1); RED CELL DISTRIBUTION WIDTH 17.6 % (11.6-14.6)
[2017-07-31 09:07] LABS: CARBON DIOXIDE 23 mEq/L (21-32); CHLORIDE 101 mEq/L (98-107)
[2017-07-31 12:00] VITALS: BP 138/73
[2017-07-31 16:00] VITALS: BP 141/82
[2017-07-31 20:00] VITALS: BP 133/91
[2017-07-31] MEDS: FAMOTIDINE 20MG TABLET PO SCH (21:11)
[2017-07-31] MEDS ORDERED: POTASSIUM CHLORIDE 20MEQ TABLET SR PO NR (21:15)
[2017-08-01] VITALS: BP 139/85
[2017-08-01] MEDS: AMPICILLIN SOD/SULBACTAM NA 3 G in SODIUM CHLORIDE 0.9% 100 ML IV SCH ×3 (00:40→12:20)
[2017-08-01] MEDS: HYDROCODONE/ACETAMINOPHEN 10/325MG TABLET PO PRN ×2 (03:12→09:44)
[2017-08-01 04:00] VITALS: BP 146/90
[2017-08-01] MEDS: SODIUM CHLORIDE 0.9% INJ 3ML FLUSH IVF SCH (05:21)
[2017-08-01 06:23] LABS: HEMATOCRIT 28.9 % (42.0-52.0); HEMOGLOBIN 9.7 g/dL (14.0-18.0); MEAN CORPUSCULAR HEMOGLOBIN 28.4 pg (28.0-32.0); MEAN CORPUSCULAR VOLUME 84.6 fL (80.0-94.0); PLATELET 199 x1000/uL (130-400); RED BLOOD CELL COUNT 3.41 mill/uL (4.7-6.1); RED CELL DISTRIBUTION WIDTH 17.8 % (11.6-14.6)
[2017-08-01 06:50] LABS: CARBON DIOXIDE 21 mEq/L (21-32); CHLORIDE 104 mEq/L (98-107)
[2017-08-01 08:00] VITALS: BP 128/83
[2017-08-01] MEDS: FAMOTIDINE 20MG TABLET PO SCH (09:44)
[2017-08-01 12:06] VITALS: BP 140/90
[2017-08-01 13:38] VITALS: BP 140/90
== END 2017-08-01 14:25 | disposition home or self-care (01) | DRG 279 ==
LOC: ER 14:34 → 5WST 19:46 → EDBEDREQTM 19:52 → EDBEDREQ 19:52 → EDBEDREQSVC 19:52 → ENRESERV 20:47
PROVIDERS: ADMIT Internal Medicine; ATTEND Internal Medicine
DX: K75.0 Abscess of liver (principal); K65.1 Peritoneal abscess; E43 Unspecified severe protein-calorie malnutrition; J90 Pleural effusion, not elsewhere classified; D64.9 Anemia, unspecified; E87.6 Hypokalemia; I10 Essential (primary) hypertension; K21.9 Gastro-esophageal reflux disease without esophagitis; N40.0 Benign prostatic hyperplasia without lower urinary tract symptoms; Z87.11 Personal history of peptic ulcer disease; Z68.20 Body mass index [BMI] 20.0-20.9, adult
CPT/HCPCS: 36415; 71010; 74177; 80048; 80053; 80305; 81001; 82270; 83605; 83735; 84443; 85025; 85027; 85610; 87040; 87086; 93005; 96361; 96365; 96375; 99285; A4216; J0290; J0295; J1956; J2270; J2405; J7030; J7040; J7050; Q9967